=== PATIENT | female | born 1990 | race Hispanic/Latino ===

== ENCOUNTER 2021-02-23 11:55 | Emergency (ER) | payer OTHER ==
[~2021-02-23] VITALS: Ht 162.6 cm; Wt 93.9 kg
[2021-02-23] MEDS ORDERED: DIFLUCAN150 MG PO (12:26)
[2021-02-23] MEDS ORDERED: BACTRIM DS TAB1 EACH PO (12:26)
== END 2021-02-23 12:35 | disposition home or self-care (01) ==
LOC: FSED 11:58
DX: R30.0 Dysuria (principal); R11.2 Nausea with vomiting, unspecified; N39.0 Urinary tract infection, site not specified; N76.0 Acute vaginitis; M54.5 Low back pain
CPT/HCPCS: 81003; 81025; 99283